=== PATIENT | male | born 1975 | race African-American/Black ===

== ENCOUNTER 2017-08-16 19:50 | Emergency (ER) | payer SELFPAY ==
[~2017-08-16] VITALS: Ht 177.8 cm; Wt 99.0 kg
[~2017-08-16 19:50] MED LIST: ALBUTEROL2.5 MG/3 M IN; AZITHROMYCIN500 MG PO; DUONEB IN; MEDDOSEPAK PO; NAPROSYN500 MG PO; NO; NO HOME MEDICATION; PREDNISONE20 MG PO; PROAIR HFA IN; PROVENTIL0.083 % IN; STERAPRED DS10 MG OR; VENTOLIN HF1 IN
--- NOTE | 2017-08-16 20:04 | NUR ---
breathing treatment given. breathing tech. for good deposition to the lungs.
[2017-08-16 20:26] LABS: HEMATOCRIT 38.4 % (39.0-50.0); IMMATURE GRANULOCYTES 0.2 % (0.0-1.0); MEAN CELL VOLUME 58.4 fL CALC (80.0-100.0); MEAN CORPUSCULAR HGB 18.3 pG CALC (26.0-32.0); MEAN CORPUSCULAR HGB CONC 31.3 g/L CALC (32.0-36.0); NEUT# 5.11 thou/uL (1.82-7.42); RED BLOOD COUNT 6.57 mill/uL (4.70-6.10); RED CELL DISTRI WIDTH 18.8 % (11.5-15.5)
[2017-08-16] MEDS ORDERED: DUONEB IN (20:30)
[2017-08-16 20:40] LABS: ALBUMIN 4.6 g/dL (3.2-5.0); ALKALINE PHOSPHATASE 63 u/l (38-126); ANION GAP 16 (6-22 (CALC)); BILIRUBIN, TOTAL 0.7 mg/dL (0.0-1.4); BUN 13 mg/dL (9-20); BUN/CREATININE RATIO 14 (12-20 (CALC)); CARBON DIOXIDE 25 mmol/l (22-30); CHLORIDE 105 mmol/l (95-108); CREATININE 0.9 mg/dL (0.7-1.3); GFR > 60 ML/MIN (>=60 (CALC)); GFR FOR AFR.AMER. > 60 ML/MIN (>=60 (CALC)); GLUCOSE 104 mg/dL (75-110); POTASSIUM 3.5 mmol/l (3.5-5.1); SGOT/AST 29 u/l (17-59); SGPT/ALT 34 u/l (21-72); SODIUM 144 mmol/l (137-146); TOTAL PROTEIN 7.8 g/dL (6.3-8.2)
[2017-08-16 20:51] LABS: MYOGLOBIN 125 ng/mL (0 - 121)
[2017-08-16 21:25] LABS: URINE BILIRUBIN - DIPSTICK NEGATIVE (NEGATIVE); URINE BLOOD DIPSTICK NEGATIVE (NEGATIVE); URINE CLARITY CLEAR; URINE COLOR YELLOW; URINE GLUCOSE - DIPSTICK NEGATIVE (NEGATIVE); URINE KETONE NEGATIVE (NEGATIVE); URINE LEUK ESTERASE NEGATIVE (NEGATIVE); URINE NITRITE - DIPSTICK NEGATIVE (Negative); URINE PH 6.5 (4.5-8.0); URINE PROTEIN - DIPSTICK 30 mg/dL (NEG-TRACE); URINE SPECIFIC GRAVITY 1.025
[2017-08-16 21:28] LABS: COCAINE NEGATIVE (NEGATIVE); TETRAHYDROCANNABIONOL POSITIVE (NEGATIVE); URINE RBC 0-2 RBC/hpf (0-5); URINE SQUAMOUS EPITHELIAL CELL FEW EPI/hpf (0-FEW); URINE WBC 0-2 WBC/hpf (0-5)
[2017-08-16] MEDS ORDERED: CEPHALEXIN500 MG PO (21:28)
[2017-08-16] MEDS ORDERED: MEDDOSEPAK PO (21:28)
[2017-08-16] MEDS ORDERED: IPRATROPIU0.5 MG/3 M IN (21:28)
[2017-08-16 21:29] LABS: BARBITURATES NEGATIVE (NEGATIVE); METHADONE NEGATIVE (NEGATIVE); OXCYCODONE NEGATIVE (NEGATIVE); TRICYLIC ANTIDEPRESSANTS NEGATIVE (NEGATIVE)
[2017-08-16 21:55] VITALS: BP 134/84
== END 2017-08-16 21:58 | disposition home or self-care (01) | DRG 203 ==
LOC: ED 19:50
PROVIDERS: Emergency Medicine
DX: J45.901 Unspecified asthma with (acute) exacerbation (principal); R06.02 Shortness of breath

== ENCOUNTER 2018-02-07 06:30 | Emergency (ER) | payer OTHER ==
[~2018-02-07] VITALS: Ht 177.8 cm; Wt 100.0 kg
[~2018-02-07 06:30] MED LIST changes: +CEPHALEXIN500 MG PO; +IPRATROPIU0.5 MG/3 M IN
[2018-02-07 07:30] LABS: HEMATOCRIT 41.6 % (39.0-50.0); HEMOGLOBIN 13.1 g/dl (14.0-18.0); IMMATURE GRANULOCYTES 0.3 % (0.0-1.0); MEAN CELL VOLUME 58.3 fL CALC (80.0-100.0); MEAN CORPUSCULAR HGB 18.3 pG CALC (26.0-32.0); MEAN CORPUSCULAR HGB CONC 31.5 g/L CALC (32.0-36.0); NEUT# 3.93 thou/uL (1.82-7.42); RED BLOOD COUNT 7.14 mill/uL (4.70-6.10); RED CELL DISTRI WIDTH 19.5 % (11.5-15.5)
[2018-02-07 08:16] LABS: ALBUMIN 4.4 g/dL (3.2-5.0); ALKALINE PHOSPHATASE 75 u/l (38-126); ANION GAP 17 (6-22 (CALC)); BILIRUBIN, TOTAL 0.9 mg/dL (0.0-1.4); BUN 9 mg/dL (9-20); BUN/CREATININE RATIO 10 (12-20 (CALC)); CARBON DIOXIDE 27 mmol/l (22-30); CHLORIDE 103 mmol/l (95-108); CREATININE 0.9 mg/dL (0.7-1.3); GFR > 60 ML/MIN (>=60 (CALC)); GFR FOR AFR.AMER. > 60 ML/MIN (>=60 (CALC)); POTASSIUM 3.6 mmol/l (3.5-5.1); SGOT/AST 19 u/l (17-59); SGPT/ALT 30 u/l (21-72); SODIUM 143 mmol/l (137-146); TOTAL PROTEIN 7.2 g/dL (6.3-8.2)
[2018-02-07] MEDS ORDERED: ZITHROMAX250 MG PO (08:27)
[2018-02-07] MEDS ORDERED: MEDDOSEPAK PO (08:27)
[2018-02-07] MEDS ORDERED: PROVENTIL HFA IN (08:49)
[2018-02-07 08:50] VITALS: BP 150/78
== END 2018-02-07 08:50 | disposition home or self-care (01) | DRG 203 ==
LOC: ED 06:30
PROVIDERS: Emergency Medicine
DX: J45.901 Unspecified asthma with (acute) exacerbation (principal)

== ENCOUNTER 2018-03-16 00:23 | Emergency (ER) | payer SELFPAY ==
[~2018-03-16] VITALS: Ht 180.3 cm; Wt 105.6 kg
[~2018-03-16 00:23] MED LIST changes: +PROVENTIL HFA IN; +ZITHROMAX250 MG PO
--- NOTE | 2018-03-16 00:44 | NUR ---
BREATHING TREATMENT GIVEN. BREATHING TECH. FOR GOOD DEPOSITION TO THE LUNGS.
[2018-03-16 01:21] LABS: HEMATOCRIT 40.4 % (39.0-50.0); HEMOGLOBIN 12.7 g/dl (14.0-18.0); IMMATURE GRANULOCYTES 0.4 % (0.0-1.0); MEAN CELL VOLUME 58.7 fL CALC (80.0-100.0); MEAN CORPUSCULAR HGB 18.5 pG CALC (26.0-32.0); MEAN CORPUSCULAR HGB CONC 31.4 g/L CALC (32.0-36.0); NEUT# 4.77 thou/uL (1.82-7.42); RED BLOOD COUNT 6.88 mill/uL (4.70-6.10); RED CELL DISTRI WIDTH 19.8 % (11.5-15.5)
[2018-03-16 01:26] LABS: ALBUMIN 4.6 g/dL (3.2-5.0); ALKALINE PHOSPHATASE 71 u/l (38-126); ANION GAP 18 (6-22 (CALC)); BILIRUBIN, TOTAL 0.6 mg/dL (0.0-1.4); BUN 8 mg/dL (9-20); BUN/CREATININE RATIO 8 (12-20 (CALC)); CARBON DIOXIDE 24 mmol/l (22-30); CHLORIDE 104 mmol/l (95-108); GFR > 60 ML/MIN (>=60 (CALC)); GFR FOR AFR.AMER. > 60 ML/MIN (>=60 (CALC)); SGOT/AST 23 u/l (17-59); SGPT/ALT 43 u/l (21-72); SODIUM 142 mmol/l (137-146); TOTAL PROTEIN 7.7 g/dL (6.3-8.2)
[2018-03-16] MEDS ORDERED: MEDDOSEPAK PO (02:55)
[2018-03-16] MEDS ORDERED: ROBITUSSIN AC10 ML PO (02:55)
[2018-03-16] MEDS ORDERED: CEPHALEXIN500 MG PO (02:55)
[2018-03-16] MEDS ORDERED: ALBUTEROL SUL0.083 % IN (02:55)
[2018-03-16 03:25] VITALS: BP 151/81
== END 2018-03-16 03:25 | disposition home or self-care (01) | DRG 203 ==
LOC: ED 00:23
PROVIDERS: Emergency Medicine
DX: J45.901 Unspecified asthma with (acute) exacerbation (principal)

== ENCOUNTER 2019-07-14 11:33 | Observation (INO) | payer SELFPAY ==
[~2019-07-14] VITALS: Ht 180.3 cm; Wt 113.0 kg
[~2019-07-14 11:33] MED LIST changes: +ALBUTEROL SUL0.083 % IN; +ROBITUSSIN AC10 ML PO
[2019-07-14 11:53] LABS: HEMATOCRIT 40.7 % (39.0-50.0); HEMOGLOBIN 12.8 g/dl (14.0-18.0); IMMATURE GRANULOCYTES 0.6 % (0.0-5.0); MEAN CELL VOLUME 59.8 fL CALC (80.0-100.0); MEAN CORPUSCULAR HGB 18.8 pG CALC (26.0-32.0); MEAN CORPUSCULAR HGB CONC 31.4 g/L CALC (32.0-36.0); NEUT# 12.72 thou/uL (1.82-7.42); RED BLOOD COUNT 6.81 mill/uL (4.70-6.10); RED CELL DISTRI WIDTH 19.3 % (11.5-15.5)
[2019-07-14 12:11] LABS: ALBUMIN 4.8 g/dL (3.2-5.0); ALKALINE PHOSPHATASE 71 u/l (38-126); ANION GAP 15 (6-22 (CALC)); BUN 9 mg/dL (9-20); BUN/CREATININE RATIO 9 (12-20 (CALC)); CARBON DIOXIDE 25 mmol/l (22-30); CHLORIDE 100 mmol/l (95-108); GFR > 60 ML/MIN (>=60 (CALC)); GFR FOR AFR.AMER. > 60 ML/MIN (>=60 (CALC)); POTASSIUM 3.7 mmol/l (3.5-5.1); SGOT/AST 28 u/l (17-59); SODIUM 136 mmol/l (137-146); TOTAL PROTEIN 8.1 g/dL (6.3-8.2)
[2019-07-14 12:20] LABS: MYOGLOBIN 45 ng/mL (0 - 121)
[2019-07-14] MEDS ORDERED: ALBUTEROL SUL0.083 % IN (12:20)
[2019-07-14 15:40] VITALS: BP 142/83
[2019-07-14 19:20] VITALS: BP 136/78
[2019-07-15 05:55] LABS: HEMATOCRIT 37.1 % (39.0-50.0); HEMOGLOBIN 11.5 g/dl (14.0-18.0); MEAN CELL VOLUME 60.6 fL CALC (80.0-100.0); MEAN CORPUSCULAR HGB 18.8 pG CALC (26.0-32.0); RED BLOOD COUNT 6.12 mill/uL (4.70-6.10); RED CELL DISTRI WIDTH 18.9 % (11.5-15.5)
[2019-07-15 06:08] LABS: ANION GAP 13 (6-22 (CALC)); BUN 14 mg/dL (9-20); BUN/CREATININE RATIO 16 (12-20 (CALC)); CARBON DIOXIDE 24 mmol/l (22-30); CHLORIDE 108 mmol/l (95-108); CREATININE 0.9 mg/dL (0.7-1.3); GFR > 60 ML/MIN (>=60 (CALC)); GFR FOR AFR.AMER. > 60 ML/MIN (>=60 (CALC)); POTASSIUM 4.4 mmol/l (3.5-5.1); SODIUM 140 mmol/l (137-146)
[2019-07-15 07:00] VITALS: BP 177/86
[2019-07-15] MEDS ORDERED: ZITHROMAX250 MG PO (08:20)
[2019-07-15] MEDS ORDERED: PREDNISONE10 MG PO (08:20)
== END 2019-07-15 09:40 | disposition home or self-care (01) | DRG 203 ==
LOC: ED 11:33 → ED-I 12:56 → ED 13:08 → ICU 13:09
PROVIDERS: Emergency Medicine; ADMIT Internal Medicine; ATTEND Internal Medicine
DX: J45.901 Unspecified asthma with (acute) exacerbation (principal); D64.9 Anemia, unspecified; F17.210 Nicotine dependence, cigarettes, uncomplicated

== ENCOUNTER 2020-12-14 13:20 | Emergency (ER) | payer SELFPAY ==
[~2020-12-14] VITALS: Ht 180.3 cm; Wt 123.0 kg
[~2020-12-14 13:20] MED LIST changes: +PREDNISONE10 MG PO
[2020-12-14] MEDS ORDERED: GENTAMICIN SULF5 ML OU (14:16)
[2020-12-14 14:30] VITALS: BP 148/88
== END 2020-12-14 14:30 | disposition home or self-care (01) | DRG 125 ==
LOC: ED 13:20
DX: H10.9 Unspecified conjunctivitis (principal); J45.909 Unspecified asthma, uncomplicated

== ENCOUNTER 2021-08-12 00:12 | Emergency (ER) | payer SELFPAY ==
[~2021-08-12] VITALS: Ht 180.3 cm; Wt 124.7 kg
[~2021-08-12 00:12] MED LIST changes: +GENTAMICIN SULF5 ML OU
[2021-08-12 00:25] VITALS: BP 174/100
[2021-08-12 01:06] LABS: HEMATOCRIT 38.3 % (39.0-50.0); IMMATURE GRANULOCYTES 0.3 % (0.0-5.0); MEAN CELL VOLUME 57.6 fL CALC (80.0-100.0); MEAN CORPUSCULAR HGB CONC 31.3 g/dL CAL (32.0-36.0); NEUT# 4.46 thou/uL (1.82-7.42); RED BLOOD COUNT 6.65 mill/uL (4.70-6.10); RED CELL DISTRI WIDTH 19.2 % (11.5-15.5)
[2021-08-12] MEDS ORDERED: PREDNISONE50 MG PO (01:50)
== END 2021-08-12 02:00 | disposition home or self-care (01) | DRG 203 ==
LOC: ED 00:12
PROVIDERS: Family Medicine
DX: J45.901 Unspecified asthma with (acute) exacerbation (principal); Z20.822 Contact with and (suspected) exposure to COVID-19

== ENCOUNTER 2021-09-20 12:15 | Emergency (ER) | payer SELFPAY ==
[~2021-09-20] VITALS: Ht 180.3 cm; Wt 120.0 kg
[~2021-09-20 12:15] MED LIST changes: +PREDNISONE50 MG PO
[2021-09-20 12:44] LABS: HEMOGLOBIN 12.6 g/dl (14.0-18.0); IMMATURE GRANULOCYTES 0.2 % (0.0-5.0); MEAN CELL VOLUME 58.7 fL CALC (80.0-100.0); MEAN CORPUSCULAR HGB 18.1 pG CALC (26.0-32.0); MEAN CORPUSCULAR HGB CONC 30.7 g/dL CAL (32.0-36.0); NEUT# 4.31 thou/uL (1.82-7.42); RED BLOOD COUNT 6.98 mill/uL (4.70-6.10); RED CELL DISTRI WIDTH 19.9 % (11.5-15.5)
[2021-09-20 13:10] LABS: ALBUMIN 4.3 g/dL (3.2-5.0); ALKALINE PHOSPHATASE 72 u/l (38-126); ANION GAP 13 (6-22 (CALC)); BUN 13 mg/dL (9-20); BUN/CREATININE RATIO 10 (12-20 (CALC)); CARBON DIOXIDE 27 mmol/l (22-30); CHLORIDE 103 mmol/l (95-108); CREATININE 1.3 mg/dL (0.7-1.3); GFR 60 ML/MIN (>=60 (CALC)); GFR FOR AFR.AMER. > 60 ML/MIN (>=60 (CALC)); POTASSIUM 3.8 mmol/l (3.5-5.1); SGOT/AST 20 u/l (17-59); SODIUM 140 mmol/l (137-146); TOTAL PROTEIN 6.9 g/dL (6.3-8.2)
[2021-09-20 13:11] LABS: BILIRUBIN, TOTAL 0.5 mg/dL (0.0-1.4)
[2021-09-20 13:54] VITALS: BP 131/88
== END 2021-09-20 14:00 | disposition home or self-care (01) | DRG 918 ==
LOC: ED 12:15
PROVIDERS: Family Medicine
DX: T46.5X1A Poisoning by other antihypertensive drugs, accidental (unintentional), initial encounter (principal); R53.83 Other fatigue; J45.909 Unspecified asthma, uncomplicated

== ENCOUNTER 2021-10-25 21:04 | Emergency (ER) | payer SELFPAY ==
[~2021-10-25] VITALS: Ht 180.3 cm; Wt 116.4 kg
[2021-10-25] MEDS ORDERED: TOBREX OPTH5 ML/BTL OU (21:41)
[2021-10-25 21:56] VITALS: BP 159/100
== END 2021-10-25 22:07 | disposition home or self-care (01) | DRG 125 ==
LOC: ED 21:04
DX: H10.9 Unspecified conjunctivitis (principal); J45.909 Unspecified asthma, uncomplicated; F17.210 Nicotine dependence, cigarettes, uncomplicated

== ENCOUNTER 2022-03-19 20:36 | Emergency (ER) | payer SELFPAY ==
[2022-03-19] VITALS (7 sets, daily range): BP systolic 150–160; BP diastolic 98–100
[~2022-03-19] VITALS: Ht 180.3 cm; Wt 118.0 kg
[~2022-03-19 20:36] MED LIST changes: +TOBREX OPTH5 ML/BTL OU
[2022-03-19] MEDS ORDERED: VENTOLIN HF1 IN (21:18)
[2022-03-19 21:20] LABS: HEMATOCRIT 40.4 % (39.0-50.0); HEMOGLOBIN 12.7 g/dl (14.0-18.0); IMMATURE GRANULOCYTES 0.2 % (0.0-5.0); MEAN CELL VOLUME 57.1 fL CALC (80.0-100.0); MEAN CORPUSCULAR HGB CONC 31.4 g/dL CAL (32.0-36.0); NEUT# 9.45 thou/uL (1.82-7.42); RED BLOOD COUNT 7.07 mill/uL (4.70-6.10); RED CELL DISTRI WIDTH 19.4 % (11.5-15.5)
[2022-03-19 21:32] LABS: ALBUMIN 4.5 g/dL (3.2-5.0); ALKALINE PHOSPHATASE 55 u/l (38-126); ANION GAP 13 (6-22 (CALC)); BILIRUBIN, TOTAL 0.4 mg/dL (0.0-1.4); BUN 13 mg/dL (9-20); BUN/CREATININE RATIO 13 (12-20 (CALC)); CARBON DIOXIDE 25 mmol/l (22-30); CHLORIDE 104 mmol/l (95-108); CREATININE 0.9 mg/dL (0.7-1.3); GFR > 60 ML/MIN (>=60 (CALC)); GFR FOR AFR.AMER. > 60 ML/MIN (>=60 (CALC)); POTASSIUM 3.3 mmol/l (3.5-5.1); SGOT/AST 22 u/l (17-59); SODIUM 139 mmol/l (137-146); TOTAL PROTEIN 7.4 g/dL (6.3-8.2)
[2022-03-19] MEDS ORDERED: ZITHROMAX250 MG PO (22:42)
[2022-03-19] MEDS ORDERED: MEDDOSEPAK PO (22:42)
== END 2022-03-19 23:54 | disposition home or self-care (01) | DRG 203 ==
LOC: ED 20:36
PROVIDERS: Emergency Medicine
DX: J45.901 Unspecified asthma with (acute) exacerbation (principal); F17.200 Nicotine dependence, unspecified, uncomplicated; Z20.822 Contact with and (suspected) exposure to COVID-19

== ENCOUNTER 2024-08-19 18:04 | Emergency (ER) | payer SELFPAY ==
[~2024-08-19] VITALS: Ht 180.3 cm; Wt 106.5 kg
[2024-08-19] MEDS ORDERED: KETOROLAC TROMETHAMINE 30 MG/ML SDV IM ONE (18:15)
[2024-08-19] MEDS ORDERED: ORPHENADRINE CITRATE 30 MG/ML AMP IM ONE (18:15)
[2024-08-19] MEDS ORDERED: predniSONE 20 MG/TAB PO ONE (18:15)
[2024-08-19] MEDS ORDERED: METHOCARBAMOL500 MG PO (20:54)
[2024-08-19] MEDS ORDERED: NAPROXEN500 MG PO (20:54)
[2024-08-19] MEDS ORDERED: MEDDOSEPAK PO (20:54)
[2024-08-19 21:10] VITALS: BP 128/74
== END 2024-08-19 21:10 | disposition home or self-care (01) | DRG 552 ==
LOC: ED 18:04
DX: S16.1XXA Strain of muscle, fascia and tendon at neck level, initial encounter (principal); J45.909 Unspecified asthma, uncomplicated; X50.3XXA Overexertion from repetitive movements, initial encounter; Y93.B2 Activity, push-ups, pull-ups, sit-ups; Z72.0 Tobacco use

== ENCOUNTER 2024-08-21 23:51 | Emergency (ER) | payer SELFPAY ==
[~2024-08-21] VITALS: Ht 180.3 cm; Wt 106.0 kg
[~2024-08-21 23:51] MED LIST changes: +METHOCARBAMOL500 MG PO; +NAPROXEN500 MG PO
[2024-08-22] MEDS ORDERED: TRIAMCINOLONE ACETONIDE 200 MG/5 ML VIAL IM ONE (00:15)
[2024-08-22] MEDS ORDERED: BUPIVACAINE HCL PF 0.5 % 50 MG/10 ML SDV IJ ONE (00:15)
[2024-08-22] MEDS ORDERED: ORPHENADRINE CITRATE 30 MG/ML AMP IM ONE (00:25)
[2024-08-22] MEDS ORDERED: BUPIVACAINE HCL PF 0.5 % 50 MG/10 ML SDV ONE (00:31)
[2024-08-22] MEDS ORDERED: DEXAMETHASON6 MG PO (01:12)
[2024-08-22] MEDS ORDERED: DEXAMETHASONE 2 MG/TAB TAB PO ONE (01:15)
[2024-08-22 01:28] VITALS: BP 132/78
== END 2024-08-22 01:28 | disposition home or self-care (01) | DRG 556 ==
LOC: ED 23:51
PROC: 3E023BZ Introduction of Anesthetic Agent into Muscle, Percutaneous Approach (ICD-10-PCS; principal; 2024-08-22)
DX: M79.18 Myalgia, other site (principal); Z72.0 Tobacco use

== ENCOUNTER 2024-08-29 03:02 | Emergency (ER) | payer SELFPAY ==
[~2024-08-29] VITALS: Ht 180.3 cm; Wt 110.0 kg
[~2024-08-29 03:02] MED LIST changes: +DEXAMETHASON6 MG PO
[2024-08-29 03:14] VITALS: BP 181/113
[2024-08-29] MEDS ORDERED: ACETAMINOPHEN 500 MG TAB PO ONE (03:30)
[2024-08-29] MEDS ORDERED: ASPIRIN 81 MG/TAB PO ONE (03:30)
[2024-08-29] MEDS ORDERED: predniSONE 20 MG/TAB PO ONE (03:30)
[2024-08-29 03:31] VITALS: BP 174/110
[2024-08-29 03:45] VITALS: BP 163/116
[2024-08-29 03:49] LABS: BASO% 0.3 % (0-3); EOS% 1.2 % (0-8); HEMATOCRIT 37.7 % (39.0-50.0); HEMOGLOBIN 11.9 g/dl (14.0-18.0); LYMPH% 27.6 % (15-41); MEAN CELL VOLUME 58.4 fL CALC (80.0-100.0); MEAN CORPUSCULAR HGB 18.4 pG CALC (26.0-32.0); MEAN CORPUSCULAR HGB CONC 31.6 g/dL CAL (32.0-36.0); MONO% 8.3 % (2-13); NEUT# 8.95 thou/uL (1.82-7.42); NEUT% 61.6 % (42-76); RED BLOOD COUNT 6.45 mill/uL (4.70-6.10); RED CELL DISTRI WIDTH 19.2 % (11.5-15.5)
[2024-08-29 03:58] LABS: ALBUMIN 3.9 g/dL (3.2-5.0); ALKALINE PHOSPHATASE 47 u/l (38-126); ANION GAP 6 (6-22 (CALC)); BILIRUBIN, TOTAL 0.7 mg/dL (0.2-1.3); BUN 20 mg/dL (9-20); BUN/CREATININE RATIO 21 (12-20 (CALC)); CARBON DIOXIDE 29 mmol/l (22-30); CHLORIDE 106 mmol/l (95-108); ESTIMATED GFR 93 ML/MIN (>=90 (CALC)); POTASSIUM 3.8 mmol/l (3.5-5.1); SGOT/AST 24 u/l (17-59); SODIUM 137 mmol/l (137-146); TOTAL PROTEIN 6.4 g/dL (6.3-8.2)
[2024-08-29 04:04] LABS: ACT PARTIAL THROMBO TIME 23.5 SECONDS (20.0-32.5); INTERNATIONAL NORMALIZED RATIO 1.1 RATIO (0.7-1.3)
[2024-08-29 04:07] LABS: PROTHROMBIN TIME 10.2 SECONDS (9.0-12.5)
[2024-08-29 04:44] VITALS: BP 163/116
== END 2024-08-29 04:47 | disposition home or self-care (01) | DRG 313 ==
LOC: ED 03:02
PROVIDERS: Family Medicine
DX: R07.89 Other chest pain (principal); M54.12 Radiculopathy, cervical region; D17.22 Benign lipomatous neoplasm of skin and subcutaneous tissue of left arm